=== PATIENT | male | born 1995 | race Asian ===

== ENCOUNTER 2025-03-05 18:37 | Emergency (ER) | payer BC, SELFPAY ==
--- NOTE | 2025-03-05 18:40 | ECG_ITS ---
Test Reason : SYNCOPE Blood Pressure : */* mmHG Vent. Rate : 80 BPM Atrial Rate : 80 BPM P-R Int : 148 ms QRS Dur : 114 ms QT Int : 428 ms P-R-T Axes : 78 60 42 degrees QTcB Int : 493 ms Normal sinus rhythm Prolonged QT Abnormal ECG No previous ECGs available Referred By: Wagner Stevens Electronically Signed By: ALBAN MARSHALL MD
[2025-03-05 18:47] VITALS: BP 101/66; PULSE 82; O2SAT 100
[2025-03-05 18:59] VITALS: BP 95/55; PULSE 82; RESP 18; TEMP 36.4; O2SAT 100; BMI 23.7
[2025-03-05] MEDS: Magnesium Sulfate/H2O 2 GM/50 ML PIGGYBACK IV (19:19)
--- NOTE | 2025-03-05 19:22 | PC.NURSE ---
pt medicated per JUN. friends at bedside. pt reports mild nausea. Blood work drawn
[2025-03-05 19:23] LABS: MANUAL DIFF FLAG NO
[2025-03-05 19:24] LABS: Hematocrit 37.3 % (42.0-52.0); Hemoglobin 13.2 g/dl (14.0-18.0); Imm Gran Abs Auto 0.02 X10*3/uL (0.00-0.03); Imm Gran Pct Auto 0.2 % (0.0-0.4); Lymphocytes Absolute Auto 4.6 X10*3/uL (1.2-4.9); Mean Corpuscular HGB Conc 35.4 g/dl (31.0-36.0); Mean Corpuscular Hemoglobin 30.1 pg (27.0-33.0); Mean Corpuscular Volume 85.0 fL (80.0-98.0); NRBC Abs Auto 0.000 X10*3/uL (0.0-0.012); NRBC Pct Auto 0.0 /100WBC (0.0-0.2); Platelet Count 283 X10*3/uL (160-400); Red Blood Count 4.39 X10*6/uL (4.60-5.80); White Blood Count 9.0 X10*3/uL (4.8-10.8)
[2025-03-05 19:29] LABS: INTERNATIONAL NORM RATIO 1.0 (0.9-1.1); Prothrombin Time 11.8 SEC (11.2-13.5)
--- OUTSIDE RECORDS SUMMARY | 2025-03-05 19:36 | XMS_ITS | Encounter Summary ---
Author Organization [facility] Address [address] [place] [id number] Phone Care Team Providers Care Cargo Supervisor Name Role Phone Unknown, Unknown Primary Care Provider Jonathan Forbes Chi, MD Primary Care Provider [phone]- [phone] Encounter Details Date Type Department Care Team (Late st Contact Info) Description 02/22/2022 [place] [facility] [place] [address] [place] [address] Kimberly Kwan MD [address] [place] [id number] [email or web address] [facility] Social History Tobacco Use Types Packs/Day Years Used Date Smoking Tobacco: Never Smokeless Tobacco: Never Alcohol Use Standard Drinks/Week Comments Yes 0 (1 standard drink = 0.6 oz pur e alcohol) socially Sex and Gender Information Value Date Recorded Sex Assigned at Not on file Legal Sex Male 4:19 PM EDT Gender Identity Not on file Sexual Orientation Not on file documented as of this encounter Functional Status * Calculated C-SSRS Risk Score (Lifetime/Recent) Answer Date of Assessment Author No Risk Indicated 02/22/2022 10:23 AM EDT Cherrie Nazario, MAICOL * Whitman Suicide Severity Rating Scale (Screener/Recent Self-Report) Question Answer Date of Assessment Author 1. Wish to be (Past 1 Month) No 02/22/2022 10:23 AM EDT Yahaira Gonsalez RN 2. Non-Specific Active Suici mayco Thoughts (Past 1 Month) No 02/22/2022 10:23 AM EDT Santiago Gonsalez, MAICOL 6. Suicidal Behavior (Lifetime) No 10:23 AM EDT Cherrie Gonsalez, MAICOL documented as of this encounter Plan of Treatment Upcoming Encounters Date Type Department Care Team (Late st Contact Info) Description 06/20/2025 9:00 AM EST Appointment [facility], Ultrasound [address] [place] [address] Warren Ward MD, MPH [address] [place] [phone] [email or web address] 07/05/2025 9:40 AM EDT Telemedicine [facility] [address] [facility], [address]th [place] [address] Warren Ward MD, MPH [address] [place] [phone] [email or web address] documented as of this encounter Visit Diagnoses Not on filedocumented in this encounter Care Teams Cargo Supervisor Relationship Specialty Start Date End Date Unknown, Unknown, PCP - General 05/16/16 12/17/22 Jonathan Anguiano Chi, MD rosa [email or web address] PCP - General Internal Medicine 12/18/22 documented as of this encounter Additional Source Comments The information contained in this document represents components of the legal health record. It is not the complete legal health record.[facility]
--- OUTSIDE RECORDS SUMMARY | 2025-03-05 19:36 | XMS_ITS | Clinical Summary ---
Author Organization [facility] Address [address] [place] [phone] Phone Care Team Providers Care Social Work Manager Name Role Phone Jonathan Anguiano Chi, MD Primary Care Provider [phone]- [phone] Allergies No known active allergies Medications finasteride (PROPECIA) 1 mg tablet Take 1 mg by mouth daily. Active ofloxacin (OCUFLOX) 0.3 % ophthalmic solution Place 1 drop into the right eye 4 (four) times a day. 5 mL 2 Active Additional Information Patient not taking.Reported on 06/22/2024 erythromycin (ROMYCIN) ophthalmic ointment Place 0.5 inches into the right eye 2 (two) times a day. 3.5 g 2 Active Additional Information Patient not taking.Reported on 06/22/2024 ZEPBOUND 2.5 mg/0.5 mL subcutaneous pen Inject 2.5 mg under the skin once a week. 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 Immunizations Immunization Administration Dates Next Due COVID-19 (Pre-02/10) Pfizer Vaccine, mRNA, PF 05/26/2020,05/05/2020 Hepatitis A, Adult 12/01/1995 Hepatitis B, unspecified formulation 06/05/1994, 1993,1993 IPV 01/29/1994 Influenza Quadrivalent w/ Preservative IM 2015 MMR 10/23/2011,09/23/2011 Measles 03/09/1998,08/30/1994 Meningococcal ACWY, unspecified formulation 09/19 Mumps 10/01/1995 Tdap 08/22/2015 Family History Medical History Relation Comments Glaucoma Neg Hx Macular degeneration Neg Hx Retinal degeneration Neg Hx Retinal detachment Neg Hx Strabismus Neg Hx Social History Tobacco Use Types Packs/Day Years Used Date Smoking Tobacco: Never Smokeless Tobacco: Never Tobacco Cessation:Counseling Given: Not Answered Alcohol Use Standard Drinks/Week Comments Yes 0 (1 standard drink = 0.6 oz pur e alcohol) socially Education Answer Date Recorded Are you interested in more education? Not on pasha e 08/16/2022 Are you concerned about learning? Not on file 08/16/2022 No 08/16/2022 No 08/16/2022 Digital Access Answer Date Recorded No 09/10/2022 No 09/10/2022 Reliable internet access at home? Not on file 09/10/2022 Device with a working camera? Not on file Sex and Gender Information Value Date Recorded Sex Assigned at Not on file Legal Sex Male 4:19 PM EDT Gender Identity Not on file Sexual Orientation Not on file Last Filed Vital Signs Vital Sign Reading Time Taken Comments Blood Pressure 134/89 06/22/2024 10:00 AM EST Pulse 85 06/22/2024 10:00 AM EST Temperature 36.6 C (97.8 F) 02/22/2022 10:18 AM EDT Respiratory Rate 17 02/22/2022 10:18 AM EDT Oxygen Saturation 97% 06/22/2024 10:00 AM EST Inhaled Oxygen Concentration - - Weight 80 kg (176 lb 4.8 oz) 06/22/2024 10:00 AM EST Height 175.3 cm (5' 9 ) 02/22/2022 10:18 AM EDT Body Mass Index 26.03 02/22/2022 10:18 AM EDT Plan of Treatment Upcoming Encounters Date Type Department Care Team (Late st Contact Info) Description 06/20/2025 9:00 AM EST Appointment [facility], Ultrasound [address] [place] [address] Warren Ward MD, MPH [address] [phone] 07/05/2025 9:40 AM EDT Telemedicine [facility] [address] [facility], 5th [place] [address] Warren Ward MD, MPH [address] [place] [phone] [email or web address] Health Maintenance Due Date Last Done Comments IPV VACCINES (2 of 3 - 4-dose series) 03/22/1994 01/29/1994 HEPATITIS A VACCINES (2 of 2 - 2-dose series) 06/02/1996 12/01/1995 DEPRESSION SCREENING 2005 HEPATITIS C SCREENING 11/21/2011 HIV ONE-TIME SCREENING (18-65 YEARS) 11/21/2011 INFLUENZA VACCINE (#1) 2024 , 01/22/2021, 01/22/2016 COVID-19 VACCINE ( season) 2024 02/04/2023, 03/06/2022, 02/09/2021, Additional history exists Adult Td,Tdap Booster 08/21/2025 08/22/2015 MENINGOCOCCAL VACCINES (ACWY) Completed 10/03/2011 SMOKING STATUS SCREENING (Once After 26 Yrs) Completed 06/22/2024 HIB VACCINES Aged Out No longer eligi ble based on patient's age to complete this topic MENINGOCOCCAL VACCINES (B) Aged Out N o longer eligible based on patient's age to complete this topic PNEUMOCOCCAL VACCINES (0-49 years) Aged Out No longer eligible based on patient's age to complete this topic Medical Devices Not on file Insurance PPO EPO Care Teams Social Work Manager Relationship Specialty Start Date End Date Jonathan Anguiano Chi, MD rosa [email or web address] PCP - General Internal Medicine 12/18/22 Additional Source Comments The information contained in this document represents components of the legal health record. It is not the complete legal health record.[facility]
[2025-03-05 19:38] LABS: Alanine Aminotransferase 15 U/L (0-40); Albumin Level 4.6 g/dL (3.5-5.0); Alkaline Phosphatase 52 U/L (39-117); Anion Gap 19 (12-20); Aspartate Amino Transferase 20 U/L (5-37); Blood Urea Nitrogen 12 mg/dL (9-16); Calcium 8.9 mg/dL (8.4-10.2); Carbon Dioxide 18 mmol/L (22-29); Chloride 106 mmol/L (96-108); Creatinine Clr Calc Pharmacy 121.6; Estimated Glomerular Filt Rate > 60; Magnesium 1.8 mg/dL (1.6-2.6); Potassium 3.1 mmol/L (3.3-5.1); Sodium 140 mmol/L (135-145); Total Protein 6.8 g/dL (6.5-8.0)
[2025-03-05 19:43] LABS: NT Pro B Type Natriuretic Pept < 15.8 pg/mL (<300); Troponin-I High Sensitivity < 2.7 ng/L (<3.5-35.0)
--- NOTE | 2025-03-05 19:43 | ED.GENADULT ---
[facility] - General Adult General Chief complaint: Syncope Stated complaint: 2 syncopal episodes, hypotensive 83/56 Time Seen by Provider: 03/05/25 19:29 Source: patient Mode of arrival: ambulatory Limitations: no limitations History of Present Illness ED Provider: Dr. Manjarrez [facility] narrative: This is a 29-year-old male presented hospital today after 2 syncopal episode. Patient was here locally at a friend's given libertarian. The patient stated that he smoke a vape and all of a sudden he was not feeling well. Patient stated he did feel high however he was attempt to get some water. And he had a syncopal episode. Patient has had a subsequent syncopal episode afterwards shortly. Therefore his friends became concerned and sent him to the ER for further evaluation. Denies any chest pain. Does endorse some shortness of breath. Patient's friend noted that his blood pressure on scene was hypotensive with a systolic in the 80s. Related Data Allergies Allergy/AdvReac Type Severity Reaction Status Date / Time No Known Allergies Allergy Verified 03/05/25 19:07 Review of Systems Review of Systems: Pertinent review of systems as mentioned in HPI. All other system otherwise negative. [facility] Past Medical History [facility] Narrative: None Social History Social History Advance Directives: No Advance Directives Information Provided: No Do you have a plan to hurt others: No Plan Physical Exam ED Exam Exam: General: Does appear to be pale on exam Head: Normacephalic, atraumatic ENT: oral mucosa moist, neck supple, no tracheal deviation Cardiovascular: regular rate, regular rhythm, no murmurs, rubbing, gallops Respiratory: CTAB, no wheeze, rales, rhonchi Gastrointestinal: Soft, non distended, non tender, non guarding Neurological: Awake and alert, no facial droop noted Skin: Warm and dry Psychiatric: Appropriate mood and thoughts Vital Signs: Vital Signs - 24 hr 03/05/25 18:59 03/05/25 19:53 03/05/25 20:22 Temperature 97.5 F Pulse Rate 82 93 Respiratory Rate 18 14 Blood Pressure 95/55 L 115/64 Pulse Oximetry 100 96 100 Oxygen Delivery Method Room Air Room Air Room Air 03/05/25 22:23 Temperature 98.5 F Pulse Rate 83 Respiratory Rate 18 Blood Pressure 112/70 Pulse Oximetry 100 Oxygen Delivery Method Room Air BMI result Body Mass Index 23.7 Medications Administered Discontinued Medications Generic Name Dose Route Start Last Admin Trade Name Renetta PRN Reason Stop Dose Admin Magnesium Sulfate 2 gm in 50 mls @ 50 mls/hr 03/05/25 19:05 03/05/25 20:20 Magnesium Sulfate/H2o IV 03/05/25 20:04 Infused ONCE ONE Infusion Lactated Ringer's 1,000 mls @ 999 mls/hr 03/05/25 19:45 03/05/25 21:34 Lr IV 03/05/25 20:45 Infused .Q1H1M JOSHUA Infusion Potassium Bicarbonate 50 meq 03/05/25 20:29 03/05/25 20:39 Potassium Bicarbonate/Cit Ac 25 Meq Tablet.Eff PO 03/05/25 20:30 50 meq ONCE ONE Administration Medical Decision Making Medical Decision Making [facility] Narrative: 29-year-old male presented hospital today for multiple syncopal episode with signs of hypotension on scene. The patient does appear to be pale on exam however denies any signs of active bleeding. His friend that he is on bedside with him stated that the patient did appear to be a lot more pale on scene when he had a syncopal episode. Patient's EKG did show prolonged QT. IV magnesium and potassium has been repleted for the patient at this time. IV fluid was given to the patient. Repeat EKG shows improvement of this prolonged QT. Patient was able to ambulate. He say he feels better.. We will plan to discharge patient at this time. Return precautions provided. Differential Diagnosis Differential Diagnoses: The differential diagnosis associated with the presentation includes Prolonged QT, hypomagnesemia, hypokalemia, syncopal episode, vasovagal syncope Lab Data [facility] Lab Attestation statement: I reviewed the patient's lab results. 03/05/25 19:18 03/05/25 19:18 Labs: Lab Results 03/05/25 03/05/25 Range/Units 19:18 21:18 WBC 9.0 (4.8-10.8) X10*3/uL RBC 4.39 L (4.60-5.80) X10*6/uL Hgb 13.2 L (14.0-18.0) g/dl Hct 37.3 L (42.0-52.0) % MCV 85.0 (80.0-98.0) fL MCH 30.1 (27.0-33.0) pg MCHC 35.4 (31.0-36.0) g/dl RDW 11.3 (11.0-16.0) % Plt Count 283 (160-400) X10*3/uL MPV 8.6 L (9.4-12.4) fL Immature Gran % (Auto) 0.2 (0.0-0.4) % Neut % (Auto) 40.9 L (45-73) % Lymph % (Auto) 50.8 H (20-40) % [place] % (Auto) 4.6 (2-11) % Eos % (Auto) 2.8 (0-4) % Baso % (Auto) 0.7 (0-2) % Lymph # (Auto) 4.6 (1.2-4.9) X10*3/uL [place] # (Auto) 0.4 (0.1-1.2) X10*3/uL Eos # (Auto) 0.3 (0.0-0.4) X10*3/uL Baso # (Auto) 0.1 (0.0-0.2) X10*3/uL Abs Immat Gran (auto) 0.02 (0.00-0.03) X10*3/uL Absolute Neuts (auto) 3.7 (2.0-8.3) x10*3/uL Absolute Nucleated RBC 0.000 (0.0-0.012) X10*3/uL Nucleated RBC % (auto) 0.0 (0.0-0.2) /100WBC PT 11.8 (11.2-13.5) SEC INR 1.0 (0.9-1.1) Sodium 140 (135-145) mmol/L Potassium 3.1 L (3.3-5.1) mmol/L Chloride 106 (96-108) mmol/L Carbon Dioxide 18 L (22-29) mmol/L Anion Gap 19 (12-20) BUN 12 (9-16) mg/dL Creatinine 0.88 (0.5-1.4) mg/dL Estim Creat Clear Calc 121.6 Estimated GFR > 60 Random Glucose 148 H (60-115) mg/dL Calcium 8.9 (8.4-10.2) mg/dL Magnesium 1.8 (1.6-2.6) mg/dL Total Bilirubin 0.7 (0.0-1.0) mg/dL AST 20 (5-37) U/L ALT 15 (0-40) U/L Alkaline Phosphatase 52 (39-117) U/L Troponin I High Sens < 2.7 (<3.5-35.0) ng/L NT-Pro-B Natriuret Pep < 15.8 (<300) pg/mL Total Protein 6.8 (6.5-8.0) g/dL Albumin 4.6 (3.5-5.0) g/dL Urine Color Yellow Urine Appearance Clear Urine pH 7.0 (5.0-9.0) Ur Specific [employer] 1.015 (1.005-1.025) Urine Protein Negative (Neg-Trace) mg/dL Urine Glucose (UA) Negative (Negative) mg/dL Urine Ketones 40 (Negative) mg/dL Urine Blood Negative (Negative) Urine Nitrite Negative (Negative) Ur Leukocyte Esterase Negative (Negative) Urine Opiates Screen Not Detected (Not Detect) Ur Buprenorphine Scrn Not Detected (Not Detect) ng/mL Ur Oxycodone Screen Not Detected (Not Detect) ng/mL Urine Methadone Screen Not Detected (Not Detect) ng/mL Urine Fentanyl Screen Not Detected (Not Detect) Ur Barbiturates Screen Not Detected (Not Detect) Ur Phencyclidine Scrn Not Detected (Not Detect) Ur Amphetamines Screen Not Detected (Not Detect) U Benzodiazepines Scrn Not Detected (Not Detect) Urine Cocaine Screen Not Detected (Not Detect) U Marijuana (THC) Screen Not Detected (Not Detect) Ethyl Alcohol < 10 mg/dL Independent Interpretation I performed an independent interpretation of an: EKG Discharge Plan Discharge Clinical Impression: Vasovagal syncope Patient Disposition: Home, Self-Care Instructions: Syncope (ED) Additional Instructions: Stay well hydrated. Avoid smoking unknown substance. If your fainting spell persist. Make sure to follow up with your primary care doctor or return to the ED. Interventions: ED Discharge Assessment Last Done: 03/05/25 22:23 Discharge Date/Time: 03/05/25 22:33 Print Language: Frisian
[2025-03-05 19:53] VITALS: O2SAT 96
[2025-03-05] MEDS: Lactated Ringers 1,000 ML 999 ML IV (20:21)
[2025-03-05 20:22] VITALS: BP 115/64; PULSE 93; RESP 14; O2SAT 100
[2025-03-05] MEDS: Potassium Bicarbonate/Cit AC 25 MEQ TABLET.EFF 50 MEQ PO (20:39)
--- NOTE | 2025-03-05 21:12 | ECG_ITS ---
Test Reason : PROLONG QT Blood Pressure : */* mmHG Vent. Rate : 87 BPM Atrial Rate : 87 BPM P-R Int : 144 ms QRS Dur : 100 ms QT Int : 398 ms P-R-T Axes : 72 37 24 degrees QTcB Int : 478 ms Normal sinus rhythm Cannot rule out Inferior infarct , age undetermined Abnormal ECG When compared with ECG of 05-Mar-2025 18:56, No significant change was found Referred By: Sandee Manjarrez Electronically Signed By: ALBAN MARSHALL MD
[2025-03-05 21:53] LABS: Appearance Urine Clear; Glucose Urine UA Negative (Negative); PH 7.0 (5.0-9.0); Specific Gravity - Urine 1.015 (1.005-1.025)
[2025-03-05 22:02] LABS: Cannabinoid Screen Urine Not Detected (Not Detect)
--- NOTE | 2025-03-05 22:13 | PC.NURSE ---
pt ambulated with steady gate to bathroom, pt denies weakness, fatigue or dizziness when ambulating. Pt states he feels much better an would like to go home, provider aware.
[2025-03-05 22:23] VITALS: BP 112/70; PULSE 83; RESP 18; TEMP 36.9; O2SAT 100
== END 2025-03-05 22:33 | disposition home or self-care (01) ==
PROVIDERS: Physician Assistant; Emergency Provider Student in an Organized Health Care Education/Training Program
DX: R55 Syncope and collapse (principal); R94.31 Abnormal electrocardiogram [ECG] [EKG]
CPT/HCPCS: 36415; 80053; 80307; 81003; 83735; 83880; 84484; 85025; 85610; 93005; 96361; 96365; 99285; J3475; J7120

== ENCOUNTER → 2025-03-05 18:40 | Outpatient (BNV) | payer BC, SELFPAY | PROVIDERS: Emergency Provider Student in an Organized Health Care Education/Training Program; Visit Provider Internal Medicine Cardiovascular Disease | DX: R94.31 Abnormal electrocardiogram [ECG] [EKG] (principal); R55 Syncope and collapse; Z13.6 Encounter for screening for cardiovascular disorders | CPT/HCPCS: 93010 ==